=== PATIENT | male | born 1975 | race Caucasian/White ===

== ENCOUNTER 2016-12-11 02:37 | Emergency (ER) | payer SELFPAY ==
[~2016-12-11] VITALS: Ht 170.2 cm; Wt 87.2 kg
[2016-12-11 03:44] LABS: BLOOD UREA NITROGEN 15 mg/dL (7-18)
[2016-12-11 04:07] LABS: IS PT STATUS REG ER OR PRE ER? YES
[2016-12-11] MEDS ORDERED: NITROGLYCERIN OINT 2%, 1GM TP ONE (04:30)
[2016-12-11 04:42] VITALS: BP 196/117
== END 2016-12-11 04:55 | disposition home or self-care (01) ==
LOC: ED 03:39
DX: K02.9 Dental caries, unspecified (principal); K04.7 Periapical abscess without sinus; I10 Essential (primary) hypertension; N28.9 Disorder of kidney and ureter, unspecified; R79.89 Other specified abnormal findings of blood chemistry
CPT/HCPCS: 36415; 80048; 82040; 84484; 85025; 93005; 99285

== ENCOUNTER 2018-09-22 19:47 | Emergency (ER) | payer SELFPAY ==
[~2018-09-22 19:47] MED LIST: AMLO-150 PO; AMLO5TAB4 PO; ASPI81TA45 PO; ATOR20TA PO; CARV12.543 PO; CHLO25TA PO; CLON0.1T22 PO; ERGO500017 PO; LISI5TAB7 PO; LOSA25TA25 PO
== END 2018-09-22 20:28 | disposition left against medical advice (07) ==
LOC: ED 20:22
DX: Z76.0 Encounter for issue of repeat prescription (principal); Z53.1 Procedure and treatment not carried out because of patient's decision for reasons of belief and group pressure

== ENCOUNTER 2019-03-21 18:48 | Emergency (ER) | payer BC, OTHER ==
[~2019-03-21] VITALS: Ht 172.7 cm; Wt 95.3 kg
[~2019-03-21 18:48] MED LIST changes: +LOSA50TA14 PO
[2019-03-21 19:03] VITALS: BP 156/90
[2019-03-21] MEDS ORDERED: LIDOCAINE 1%, 2ML INFIL ONE (19:30)
--- NOTE | 2019-03-21 20:40 | NUR ---
PT FROM LOBBY TO ROOM 10
[2019-03-21] MEDS ORDERED: LIDOCAINE-MPF 1%, 5ML ONE (21:22)
== END 2019-03-21 22:11 | disposition home or self-care (01) ==
LOC: ED 22:05
DX: S61.012A Laceration without foreign body of left thumb without damage to nail, initial encounter (principal); Z87.891 Personal history of nicotine dependence; W26.0XXA Contact with knife, initial encounter; Y93.89 Activity, other specified; Y92.69 Other specified industrial and construction area as the place of occurrence of the external cause; Y99.0 Civilian activity done for income or pay
CPT/HCPCS: 12041; 99284